=== PATIENT | female | born 1995 | race Caucasian/White ===

== ENCOUNTER 2018-03-14 03:09 | Emergency (ER) | payer OTHER ==
[~2018-03-14] VITALS: Ht 165.1 cm; Wt 54.4 kg
[2018-03-14] MEDS ORDERED: VYVANSE40 MG PO (03:27)
[2018-03-14] MEDS ORDERED: SSD CREAM 1% 5050 GM TOP (04:35)
[2018-03-14] MEDS ORDERED: KEFLEX500 M1 PO (04:51)
[2018-03-14] MEDS ORDERED: PERCOCET 7.5-31 EACH PO (05:00)
[2018-03-14 05:13] VITALS: BP 121/86
== END 2018-03-14 05:19 | disposition home or self-care (01) ==
LOC: M.ERS 03:09
DX: T22.212A Burn of second degree of left forearm, initial encounter (principal); T22.211A Burn of second degree of right forearm, initial encounter; T20.26XA Burn of second degree of forehead and cheek, initial encounter; T20.24XA Burn of second degree of nose (septum), initial encounter; T31.0 Burns involving less than 10% of body surface; Z88.0 Allergy status to penicillin; X10.2XXA Contact with fats and cooking oils, initial encounter; Y93.89 Activity, other specified; Y92.89 Other specified places as the place of occurrence of the external cause; Y99.8 Other external cause status